=== PATIENT | female | born 1965 | race Caucasian/White ===

== ENCOUNTER 2020-02-16 13:27 | Outpatient (CLI) | payer OTHER, SELFPAY ==
--- NOTE | ~2020-02-16 | US_ITS ---
EXAMINATION: US thyroid DATE: 02/16/2020 14:02 INDICATION: Palpable lump at the right neck TECHNIQUE: Multiple ultrasound images of the thyroid were obtained. COMPARISON: None. FINDINGS: The right thyroid lobe measures 4.4 x 2.5 x 2.7 cm. The left thyroid lobe measures 4.1 x 1.7 x 1.0 c m. 2.9 cm wider than tall solid hypoechoic nodule with smooth margins and without echogenic foci in the right thyroid. (TI-RADS 4, moderately suspicious , FNA if >=1.5 cm, annual followup is >1 cm). 1. 3 cm wider than tall solid isoechoic nodule with smooth margins and without echogenic foci in the lef t thyroid lobe. (TI-RADS 3, mildly suspicious , FNA if >=2.5 cm, annual followup is >1.5 cm). There i s normal echotexture and echogenicity throughout the thyroid gland with diffusely increased vascular flow on color Doppler. IMPRESSION: 1. Bilateral thyroid nodules. Recommend ultrasound-guided biopsy of the 2.9 cm TI RADS 4 nodule in th e right thyroid. Reviewed, dictated and finalized at location A. IMPRESSION: 1. Bilateral thyroid nodules. Recommend ultrasound-guided biopsy of the 2.9 cm TI RADS 4 nodule in the right thyroid.
== END 2020-02-16 13:28 | disposition home or self-care (01) ==
PROVIDERS: PCP Internal Medicine; Visit Provider Nurse Practitioner
DX: E04.2 Nontoxic multinodular goiter (principal); R22.9 Localized swelling, mass and lump, unspecified
CPT/HCPCS: 76536

== ENCOUNTER 2020-02-26 13:06 | Outpatient (CLI) | payer OTHER, SELFPAY ==
--- NOTE | ~2020-02-26 | US_ITS ---
EXAMINATION: US FNA w image guidance DATE: 02/26/2020 14:13 INDICATION: Right thyroid nodule. TECHNIQUE: The procedure and its benefits, risks, and benefits were discussed with the patient. Risks specifical ly discussed included bleeding. The patient verbalized understanding of the risks and agreed to proce ed. The neck was prepped and draped in the usual sterile manner. 1% lidocaine was used for local ane sthesia. 5 passes were made with a 25G needle into the lesion. Appropriate needle location was docu mented with continuous sonographic guidance. There were no immediate complications. The patient unde rstood to call the ordering physician for results after a week and a half and verbalized that underst anding. FINDINGS: Grayscale ultrasound images demonstrate needles advanced into a 3.1 cm nodule in right thyroid lobe f or biopsy. IMPRESSION: 1. Ultrasound-guided fine needle aspiration of a right thyroid nodule. Reviewed, dictated and finalized at location A.
== END 2020-02-26 13:07 | disposition home or self-care (01) ==
PROVIDERS: PCP Internal Medicine; Visit Provider Otolaryngology
DX: E04.1 Nontoxic single thyroid nodule (principal)
CPT/HCPCS: 10005; 88173; 88305; 88307

== ENCOUNTER 2020-07-02 12:40 | Outpatient (CLI) | payer OTHER, SELFPAY ==
--- NOTE | ~2020-07-02 | XR_ITS ---
XR lumbar spine 2-3V DATE: 07/02/2020 13:04 INDICATION: Low back pain TECHNIQUE: AP, lateral, coned lateral lumbosacral views COMPARISON: None FINDINGS: There are 6 functional lumbar vertebrae. There is moderate degenerative disc disease betwee n the last 2 functional lumbar vertebrae. The remaining lumbar interspaces are well preserved. No fracture or bone destruction or spondylolisthesis. The lumbar pedicles are intact. The sacroiliac joints are intact. Osteopenia. IMPRESSION: Mild to moderate degenerative disc disease at the interspace between last 2 functional maria elena mbar vertebrae Osteopenia. Reviewed, dictated and finalized at location B. 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
--- NOTE | ~2020-07-02 | XR_ITS ---
XR_CERV2-3V_CR DATE: 07/02/2020 13:04 INDICATION: Neck pain TECHNIQUE: AP, open-mouth, lateral views COMPARISON: None FINDINGS: Left cervical rib is noted. C1 and C2 are normally aligned and the odontoid process is intact. There is moderate degenerative disc disease at C5-6 and C6-7. No fracture or dislocation or locked facet or prevertebral soft tissue swelling. There is mild levoscoliosis of the upper thoracic spine. IMPRESSION: Moderate degenerative disc disease at C5-6 and C6-7 Reviewed, dictated and finalized at Location A. Reviewed, dictated and finalized at location B. 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
== END 2020-07-02 12:41 | disposition home or self-care (01) ==
LOC: ANHIMG 12:43
PROVIDERS: PCP Internal Medicine; Visit Provider Internal Medicine
DX: M47.812 Spondylosis without myelopathy or radiculopathy, cervical region (principal); M47.817 Spondylosis without myelopathy or radiculopathy, lumbosacral region; M41.9 Scoliosis, unspecified
CPT/HCPCS: 72040; 72100

== ENCOUNTER 2020-08-09 09:00 | Outpatient (RCR) | payer OTHER, SELFPAY ==
--- NOTE | 2020-07-08 14:40 | PTOPEVAL ---
PHYSICAL THERAPY EVALUATION Thank you for referring Mer Keller to [facility].? Mer was evaluated for the dx of neck and low back pain. The patient is scheduled to be seen for therapy?2 x/week for 4 weeks. Please review, sign, date and return this plan of care MITALI. I agree with and certify that the following plan of care is medically necessary. Referring Physician Date Attending Provider: DO Elizabeth EdwardsPT Outpatient Evaluation Start: 07/08/20 08:28 Freq: Status: Active Protocol: Document 07/08/20 13:34 MLV (Rec: 07/08/20 14:32 MLV [id number]) Assessment Status Evaluation Evaluation Information Problem Diagnosis neck and back pain Onset 1 month ago Cause none Additional Evaluation Detail The patient reports neck and back pain and back pain is less than neck. The back pain is chronic and the neck pain started about 1 month ago. The neck pain is worse on the left side. 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 Subjective Information Patient reports increased pain Query Text:As Reported By Patient/ when doing jigsaw puzzles so Family she quit doing them. Diagnostic Tests X-Rays For This Problem Yes: neck and back; DDD- moderate at neck and mild at lumbar Previous Treatments Previous Treatments For This Problem none for neck or back Pain Assessment Timing of Pain Assessment Timing of Pain Assessment Assessment Pain Scale Pain Scale Used Numeric (1 - 10) Self Report Pain Assessment Back Reported Pain Level 0 Pain Description Aching,Tightness Pain Frequency Chronic,Intermittent Greatest Pain Intensity 4 Pain Aggravating Factors Bending,Lifting Neck Reported Pain Level 0 Pain Description Aching Pain Frequency Intermittent Greatest Pain Intensity 3 Pain Aggravating Factors Bending,Prolonged Position Other Pain Aggravating Factors looking down for a while Pain Score Pain Score 0,0: Self Report Interventions Used Interventions Used By Clinicians Education,Electrical Stimulation,Heat Pain Relief Interventions Used By Inactivity/Rest,Position Patient
--- NOTE | 2020-08-09 09:42 | PTOPEVAL ---
PHYSICAL THERAPY DISCHARGE Thank you for referring Mer Keller to [facility].? The patient has been seen for therapy 10 visits for the diagnosis of neck and low back pain. The patient has met most goals and has peaked with skilled PT needs at this time. Plan to discharge therapy at this time. Please review, sign, date and return this plan of care MITALI. I agree with and certify the following plan of care. Referring Physician Date Attending Provider: DO Elizabeth EdwardsPT Outpatient Discharge Start: 07/08/20 08:28 Freq: Status: discharge Protocol: Document 08/09/20 09:00 MLV (Rec: 08/09/20 09:42 MLV [email or web address]) Therapy Assessment Status Discharge Information Problem Additional Evaluation Detail Patient feels she has improved and will continue with her exercises and heat at home to maintain. Patient inquired about benefits of paying to see a massage therapist prn. PT discussed pros and cons to allow patient to make educated choices. Pain Assessment Timing of Pain Assessment Timing of Pain Assessment Post-Treatment Pain Scale Pain Scale Used Numeric (1 - 10) Self Report Pain Assessment Back Reported Pain Level 0 Greatest Pain Intensity 2 Neck Reported Pain Level 0 Greatest Pain Intensity 3 Additional Pain Comments frequency of high level pain is 50% less often Pain Score Pain Score 0,0: Self Report Interventions Used Interventions Used By Clinicians Exercise,Heat,Manual Therapy Techniques Pain Relief Interventions Used By Exercise,Heat,Position Change Patient Cervical and Lumbar ROM Cervical Lateral Flexion Right (0-50) 43 Query Text:Active in Degrees Cervical Lateral Flexion Left (0-50) 40 Query Text:Active in Degrees Cervical Rotation Right (0-90) 74 Query Text:Active in Degrees Cervical Rotation Left (0-90) 61 Query Text:Active in Degrees Cervical ROM Comments all motions improved except right rotation (already WNL's) Posture Standing Position Additional Posture Comments patient is independent with posture correction to maximize pain relief, without cues needed Palpation Assessment Palpation 75% decreased tightness at cervical and thoracic muscle groups and non tender to moderate pressure STM. PT C
== END 2020-08-13 12:47 | disposition home or self-care (01) ==
LOC: ANHPT 09:00
PROVIDERS: PCP Internal Medicine; Visit Provider Internal Medicine
DX: M54.2 Cervicalgia (principal); M54.5 Low back pain; G89.29 Other chronic pain
CPT/HCPCS: 97014; 97110; 97140; 97161; G0283

== ENCOUNTER 2021-03-19 08:55 | Outpatient (CLI) | payer OTHER, SELFPAY ==
[2021-03-22 04:31] LABS: Thyroglobulin Antibodies <1 IU/mL (<=1); Thyroid Peroxidase Antibodies <1 IU/mL (<9)
== END 2021-03-19 08:56 | disposition home or self-care (01) ==
PROVIDERS: PCP Internal Medicine; Visit Provider Otolaryngology
DX: E04.1 Nontoxic single thyroid nodule (principal)
CPT/HCPCS: 36415; 84432; 84443; 86376; 86800

== ENCOUNTER → 2021-09-09 11:57 | Outpatient (CLI) | payer OTHER, SELFPAY ==
--- NOTE | ~2021-09-09 | XR_ITS ---
EXAMINATION: XR knee RT 2V DATE: 09/09/2021 12:37 INDICATION: Right knee pain. TECHNIQUE: 2 views of right knee standing were obtained. COMPARISON: None. FINDINGS: Bone alignment is normal. No fracture. There is mild osteoarthritis of medial and patellofe moral compartments characterized by tiny osteophytes. No joint space narrowing. No knee joint effusio n. IMPRESSION: 1. Mild right knee osteoarthritis. Reviewed, dictated and finalized at location A.
--- NOTE | ~2021-09-09 | XR_ITS ---
XR thoracic spine 2V DATE: 09/09/2021 12:37 INDICATION: Thoracic back pain TECHNIQUE: AP, lateral and swimmer views COMPARISON: None FINDINGS: There is diffuse osteopenia. There is mild levoscoliosis of the upper thoracic spine and slight dextroscoliosis of the lower thora cic spine. There is mild loss of height and anterior wedging and mild cupping of the superior vertebral endplate of approximately T10 consistent with mild compression fracture deformity of undetermined age.. There is mild paraspinal soft tissue thickening in this area, which might indicate this is recent. Clinica l correlation is advised. MR thoracic spine examination may be of assistance for further evaluation. There is mild degenerative spurring of the thoracic spine. IMPRESSION: Mild compression fracture deformity of undetermined age of T10; there is mild paracentral soft tissue thickening in this area which may indicate this is recent. Osteopenia Scoliosis Reviewed, dictated and finalized at location A. IMPRESSION: Mild compression fracture deformity of undetermined age of T10; the re is mild paracentral soft tissue thickening in this area which may indicate t his is recent. Osteopenia Scoliosis
== END ==
PROVIDERS: PCP Nurse Practitioner; Visit Provider Nurse Practitioner
DX: M25.561 Pain in right knee (principal); M54.6 Pain in thoracic spine; M48.54XA Collapsed vertebra, not elsewhere classified, thoracic region, initial encounter for fracture; M85.88 Other specified disorders of bone density and structure, other site; M41.84 Other forms of scoliosis, thoracic region; M17.11 Unilateral primary osteoarthritis, right knee
CPT/HCPCS: 72070; 73560

== ENCOUNTER 2021-11-21 18:06 | Emergency (ER) | payer OTHER, SELFPAY ==
[2021-11-21 18:09] VITALS: BP 190/128; PULSE 86; RESP 14; TEMP 36.5; O2SAT 100
[2021-11-21 18:30] VITALS: PULSE 73
--- NOTE | 2021-11-21 18:31 | ECG_ITS ---
Measurements Intervals Justin Rate: 69 P: 47 AL: 160 QRS: 52 QRSD: 90 T: 26 QT: 391 QTc: 419 Interpretive Statements SINUS RHYTHM VENTRICULAR PREMATURE COMPLEX DELAYED PRECORDIAL R/S TRANSITION BORDERLINE ST ABNORMALITY- INF/LAT LEADS BORDERLINE ECG Electronically Signed On 11-23-2021 15:09:50 CDT by Luis Alberto Sage D.O.
[2021-11-21 18:38] LABS: Basophils Percent Auto 0.5 % (0.2-1.2); Eosinophils Absolute Auto 0.1 K/mm3 (0-0.3); Eosinophils Percent Auto 1.6 % (0-4.4); Hematocrit 43.5 % (37.0-47.0); Hemoglobin 14.1 g/dL (12.0-15.0); Immature Granulocyte Absolute 0.02 K/mm3 (0.00-0.031); Immature Granulocyte Percent A 0.3 % (0-0.5); Lymphocytes Absolute Auto 2.15 K/mm3 (0.9-3.2); Lymphocytes Percent Auto 35.1 % (18.3-44.2); Mean Corpuscular HGB Conc 32.4 g/dl (32-36); Mean Corpuscular Hemoglobin 26.7 pg (26-34); Mean Corpuscular Volume 82.2 fl (80-100); Mean Platelet Volume 8.8 fl (7.4-10.4); Monocytes Absolute Auto 0.5 K/mm3 (0.1-0.6); Monocytes Percent Auto 8.2 % (2.6-8.5); Neutrophils Absolute Auto 3.3 K/mm3 (1.3-6.7); Neutrophils Percent Auto 54.3 % (45.5-73.1); Platelet Count Result 219 k/mm3 (150-375); Red Blood Count 5.29 M/mm3 (4.2-5.4); Red Cell Distribution Width 13.7 % (11.5-14.5); White Blood Count 6.1 K/mm3 (4.5-10.0)
[2021-11-21 18:49] LABS: Alanine Aminotransferase 13 U/L (6-35); Albumin Level 4.5 g/dL (3.5-5.1); Alkaline Phosphatase 84 U/L (38-126); Anion Gap 12 mmol/L (8-16); Aspartate Amino Transferase 24 U/L (14-36); Bilirubin,Total 0.8 mg/dL (0.2-1.3); Blood Urea Nitrogen 13 mg/dL (7-17); Calcium 10.1 mg/dL (8.4-10.2); Carbon Dioxide 23 mmol/L (22-30); Chloride 101 mmol/L (98-107); Estimated CRCL calculation 72 ml/min; Estimated Glomerular Filt Rate > 60; Glucose 92 mg/dL (65-110); Potassium 3.5 mmol/L (3.4-5.0); Sodium 136 mmol/L (137-145)
--- NOTE | 2021-11-21 19:29 | PC.NURSE ---
called lab at 192 and added on a MG
[2021-11-21 19:35] LABS: Magnesium 1.7 mg/dL (1.6-2.3)
[2021-11-21] MEDS: diazePAM (*CRX) 2 MG TABLET PO (19:50)
--- NOTE | 2021-11-21 20:12 | ED.GENADULT ---
HPI - General Adult General Chief complaint: Unspecified Stated complaint: HTN and arm tingling Time Seen by Provider: 11/21/21 18:54 History of Present Illness HPI narrative: Patient is a 56-year-old female who presents to the ER with concerns of elevated blood pressure and pulse like feelings in her arms. She feels vibrations going down her arms. Started around 1 PM. Noticed her blood pressures been running high for her in the 160s systolic. Diastolic is been in the mid 90s and low 100s at times. Patient underwent thyroidectomy 3 days ago at [facility]. Denies pain in her neck or limitation range of motion. No difficulty breathing or swallowing. Reports she has not needed to take any muscle relaxers or postoperative pain medication at home. She reports she is taking calcium carbonate as she has been told she is at risk of having low calcium. Patient reports she takes 5 mg of amlodipine. She is taking no extra dosages. Reports her blood pressure typically runs in the 150s with occasional be in the 130s systolic. Patient reports she has had similar symptoms in the past when she has had anxiety. Related Data Home Medications Medication Instructions Recorded Confirmed aspirin 325 mg tablet 325 mg PO DAILY PRN 07/22/20 09/09/21 Allergies Allergy/AdvReac Type Severity Reaction Status Date / Time morphine Allergy Mild Itching Verified 09/09/21 11:18 Review of Systems Review of Systems: All systems reviewed & are unremarkable except as noted in HPI and below Constitutional: Constitutional: Denies chills, Denies fatigue and Denies fever(s) Eyes: Eyes: Denies change in vision and Denies diplopia ENT: Denies dizziness, Denies sore throat and Denies throat swelling Cardiovascular: Cardiovascular: Denies chest pain and Denies palpitations Respiratory: Respiratory: Denies cough and Denies dyspnea Musculoskeletal: Musculoskeletal: Denies muscle cramps, Denies muscle weakness and Denies numbness Comments: Hydrations going down arms. 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 HEAD: Normocephalic, atraumatic. NECK: Supple. Well-healing postoperative scar midline with slight swelling superficially that patient reports is normal. No bruising or cellulitis. Trachea midline. CHEST: Clear to auscultation. No respiratory distress. HEART: Regular rate and rhythm. Normal peripheral pulses that are equal EXTREMITIES: Normal range of motion. No edema. SKIN: Warm, dry, no rash. NEURO: No focal deficits. Alert and oriented x3. PSYCH: Normal mood and affect. Course Course Emergency Course: Symptoms not felt to be related more than hypertension. Symptoms are presenting without treatment of blood pressure. Patient did get Valium but symptoms were improving prior to receiving them. Suspect patient is having some anxiousness given recent diagnosis of thyroid cancer with thyroidectomy and plans to start radioactive iodine. Will start on hydrochlorothiazide for home as a second blood pressure agent as
[2021-11-21] MEDS: hydroCHLOROthiazide 12.5 MG CAPSULE PO (21:02)
[2021-11-21 21:03] VITALS: BP 168/112; PULSE 83; RESP 18; O2SAT 97
== END 2021-11-21 21:01 | disposition home or self-care (01) ==
PROVIDERS: Emergency Medicine; Emergency Provider Emergency Medicine; PCP Nurse Practitioner
DX: I10 Essential (primary) hypertension (principal); F32.9 Major depressive disorder, single episode, unspecified
CPT/HCPCS: 36415; 80053; 83735; 85025; 93005; 99283; A9270

== ENCOUNTER 2022-02-02 08:21 | Outpatient (CLI) | payer OTHER, SELFPAY ==
[2022-02-02 19:23] LABS: Alanine Aminotransferase 12 U/L (6-35); Albumin Level 4.4 g/dL (3.5-5.1); Alkaline Phosphatase 66 U/L (38-126); Anion Gap 8 mmol/L (8-16); Aspartate Amino Transferase 32 U/L (14-36); Bilirubin,Total 0.7 mg/dL (0.2-1.3); Blood Urea Nitrogen 16 mg/dL (7-17); Calcium 9.2 mg/dL (8.4-10.2); Carbon Dioxide 30 mmol/L (22-30); Chloride 99 mmol/L (98-107); Cholesterol 166 mg/dL (0-200); Estimated Glomerular Filt Rate > 60; Glucose 89 mg/dL (65-110); HDL Direct 48 mg/dL; Potassium 4.8 mmol/L (3.4-5.0); Sodium 137 mmol/L (137-145); Triglycerides 59 mg/dL (<150)
[2022-02-02 19:34] LABS: LDL Cholesterol Direct 73 mg/dL
[2022-02-02 19:53] LABS: Thyroid Stimulating Hormone 0.203 uIU/mL (0.465-4.680)
[2022-02-02 19:59] LABS: Vitamin D 25 Hydroxy 77.5 ng/mL
== END 2022-02-02 08:22 | disposition home or self-care (01) ==
LOC: ANHGOSHLAB 08:22
PROVIDERS: PCP Nurse Practitioner; Visit Provider Internal Medicine
DX: Z00.00 Encounter for general adult medical examination without abnormal findings (principal); E04.2 Nontoxic multinodular goiter; E55.9 Vitamin D deficiency, unspecified
CPT/HCPCS: 36415; 80053; 80061; 82306; 84443